=== PATIENT | female | born 1980 | race Caucasian/White ===

== ENCOUNTER 2016-04-01 12:12 | Outpatient (CLI) | payer OTHER ==
[2016-04-01] MEDS ORDERED: GADOBUTROL 7.5 MMOL/7.5 ML VIAL IVP ONE (13:07)
== END 2016-04-01 12:13 | disposition home or self-care (01) ==
DX: R51 Headache (principal)
CPT/HCPCS: 70553; A9585

== ENCOUNTER 2016-05-16 20:47 | Emergency (ER) | payer OTHER ==
[2016-05-16 21:16] LABS: BILIRUBIN,URINE NEGATIVE (NEGATIVE); PH,URINE 7.5 PH (5.0-7.5)
[2016-05-16 21:25] LABS: UA w/ MICROSCOPIC CHARGE YES
[2016-05-16] MEDS ORDERED: KETOROLAC 60 MG/2 ML VIAL IVP STA (21:38)
[2016-05-16] MEDS ORDERED: SODIUM CHLORIDE 0.9% 1,000 ML IV ONE ×2 (21:38→21:41)
[2016-05-16] MEDS ORDERED: ONDANSETRON 4 MG/2 ML VIAL IVP STA (21:38)
[2016-05-16] MEDS ORDERED: HYDROmorphone 1 MG/ML SYRINGE IVP STA (21:38)
[2016-05-16] MEDS ORDERED: KETOROLAC 30 MG/ML VIAL ONE (21:40)
[2016-05-16] MEDS ORDERED: HYDROmorphone 1 MG/ML SYRINGE ONE (21:41)
[2016-05-16] MEDS ORDERED: ONDANSETRON 4 MG/2 ML VIAL ONE (21:41)
[2016-05-16 21:50] LABS: HCG UR QUAL NEGATIVE; UR CULTURE IF IND NOT INDICATED
--- NOTE | 2016-05-16 22:27 | CT Preliminary Report ---
Exam: CT Abdomen/Pelvis W/O IMPRESSION: 1. No urolithiasis seen. 2. Moderate stool in the colon. 3. Appendix appears normal. 4. Several low-attenuation liver lesions measuring up to 2.1 x 1.5 cm. These may be cysts but are not definitively characterized. [facility] SITE ID: [id number]
--- NOTE | 2016-05-16 22:30 | CT Report ---
EXAM: CT ABDOMEN AND PELVIS (CT KUB) EXAM DATE: 05/16/2016 10:03 PM. CLINICAL HISTORY: Right flank pain, with hematuria. COMPARISONS: None. TECHNIQUE: Routine axial helical CT imaging was performed through the abdomen and pelvis without IV c ontrast. Reconstructions: Coronal and sagittal. In accordance with CT protocol optimization, one or more of the following dose reduction techniques w ere utilized for this exam: automated exposure control, adjustment of mA and/or KV based on patient s ize, or use of iterative reconstructive technique. FINDINGS: Lung Bases: Unremarkable. Right Kidney/Ureter: No stones, hydronephrosis, or hydroureter. No perinephric fat stranding. Left Kidney/Ureter: No stones, hydronephrosis, or hydroureter. No perinephric fat stranding. Other Abdominal Organs: Several low-attenuation liver lesions measuring up to 2.1 x 1.[address] [place] is unremarkable. Spleen, pancreas, and adrenals show no focal abnormalities on this noncontrast ex amination. Peritoneal Cavity: Moderate stool in the colon. No diverticulitis. No small bowel obstruction. No catracho e air or free fluid. No lymphadenopathy. Appendix appears normal. Pelvic Organs: No bladder stones or wall thickening. Noncontrast images of the visualized pelvic orga ns are unremarkable. Vasculature: Unremarkable. Other: None. IMPRESSION: 1. No urolithiasis seen. 2. Moderate stool in the colon. 3. Appendix appears normal. 4. Several low-attenuation liver lesions measuring up to 2.1 x 1.5 cm. These may be cysts but are not definitively characterized. [facility] Referring Provider Line: [phone] SITE ID: [id number]
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
[2016-05-16 22:49] VITALS: BP 104/51
--- NOTE | 2016-05-16 23:59 | Ultrasound Report ---
EXAM: PELVIC ULTRASOUND EXAM DATE: 05/16/2016 11:51 PM. CLINICAL HISTORY: Right adnexal pain; rule out ovarian torsion. COMPARISON: None. TECHNIQUE: Realtime transabdominal pelvic scan performed with static image documentation. FINDINGS: Uterus: 9.8 x 5.4 x 5.6 cm, volume 153 cc. Anteverted position. Normal overall size and echotexture. Masses: None. Endometrium: 8 mm. Normal. Cervix: Obscured by bowel gas. Right Ovary: 4.1 x 2.0 x 2.7 cm, volume 11.9 cc. Normal echotexture and blood flow. Left Ovary: 3.0 x 2.0 x 3.3 cm, volume 10.3 cc. Normal echotexture and blood flow. Free Fluid: None. Other: None. IMPRESSION: 1. Uterus and ovaries appear normal. 2. No free fluid seen. [facility] Referring Provider Line: [phone] SITE ID: [id number]
--- NOTE | 2016-05-16 23:59 | Ultrasound Preliminary Report ---
Exam: US Pelvic Non OB w/Doppler Ltd IMPRESSION: 1. Uterus and ovaries appear normal. 2. No free fluid seen. [facility] SITE ID: [id number]
== END 2016-05-17 00:15 | disposition home or self-care (01) ==
LOC: ED 20:47
DX: N23 Unspecified renal colic (principal)
CPT/HCPCS: 74176; 76856; 81001; 81025; 93976; 96361; 96374; 96375; 99283; 99284; J1170; 81003; 87086

== ENCOUNTER 2016-09-23 09:43 | Day surgery (SDC) | payer OTHER ==
[2016-09-23] MEDS ORDERED: LACTATED RINGERS 1,000 ML IV ONE ×3 (09:48→15:38)
[2016-09-23] MEDS ORDERED: ceFAZolin 2 GM/50 ML 50 ML IV ONE (09:49)
[2016-09-23] MEDS ORDERED: CELECOXIB 100 MG CAPSULE PO ONE (09:49)
[2016-09-23] MEDS ORDERED: ACETAMINOPHEN 1,000 MG/100 ML 100 ML IV ONE (09:49)
[2016-09-23 10:21] LABS: HCG UR QUAL NEGATIVE
[2016-09-23] MEDS ORDERED: EPINEPHrine 1 MG/ML AMP IVP ONE (11:45)
[2016-09-23] MEDS ORDERED: ROCURONIUM 50 MG/5 ML VIAL IVP ONE (13:00)
[2016-09-23] MEDS ORDERED: DEXAMETHASONE 4 MG/ML VIAL IVP ONE (13:00)
[2016-09-23] MEDS ORDERED: NEOSTIGMINE 1 MG/1 ML 10 ML MDV IVP ONE (13:00)
[2016-09-23] MEDS ORDERED: ROPIVACAINE 0.5% PF 20 ML AMPULE EP ONE (13:00)
[2016-09-23] MEDS ORDERED: GLYCOPYRROLATE 1 MG/5 ML VIAL IVP ONE (13:00)
[2016-09-23] MEDS ORDERED: fentaNYL 100 MCG/2 ML VIAL IVP ONE (13:00)
[2016-09-23] MEDS ORDERED: ceFAZolin 1 GM VIAL IV ONE (13:00)
[2016-09-23] MEDS ORDERED: MIDAZOLAM 2 MG/2 ML VIAL IVP ONE (13:00)
[2016-09-23] MEDS ORDERED: PROPOFOL 200 MG/20 ML VIAL IVP ONE (13:00)
[2016-09-23] MEDS ORDERED: ONDANSETRON 4 MG/2 ML VIAL IVP ONE (13:00)
[2016-09-23] MEDS ORDERED: BUPIVACAINE 0.25% PF 30 ML VIAL SUBQ ONE (13:55)
[2016-09-23] MEDS ORDERED: ONDANSETRON 4 MG/2 ML VIAL ONE (14:43)
[2016-09-23] MEDS ORDERED: SCOPOLAMINE PATCH TOP ONE (14:57)
[2016-09-23] MEDS ORDERED: PROMETHAZINE 25 MG/1 ML VIAL ONE (14:58)
[2016-09-23 16:32] VITALS: BP 116/62
--- NOTE | 2016-09-24 10:35 | XRAY Report ---
RIGHT SHOULDER X-RAY TAKEN IN PACU: 09/23/2016 CLINICAL HISTORY: Shoulder pain. FINDINGS: Present exam is a limited portable one and demonstrates internal and external rotation vie ws. No significant abnormality is noted on these views. No fracture is seen. I cannot accurately c omment the relationship of the right humeral head to the glenoid on these views. Suggest a Grashey v iew be obtained to better visualize humeral head relationship to the glenoid, especially if there is concern about a subtle dislocation. IMPRESSION: NO DEFINITE ABNORMALITY NOTED. SUGGEST A GRASHEY VIEW OF THE RIGHT SHOULDER FOR FURTHER EVALUATION DISCUSSED ABOVE. COMMENT: A written report was sent to PACU by Dr. Cobian. The x-ray hardware technician took this report to the physicians. This was done on 09/23/2016 at 3:40 p.m. JOB #: [id number] EXT JOB #:[id number]
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
== END 2016-09-23 09:44 | disposition home or self-care (01) ==
LOC: SDS 09:43
PROVIDERS: ATTEND Orthopaedic Surgery
PROC: 0RBJ4ZZ Excision of Right Shoulder Joint, Percutaneous Endoscopic Approach (ICD-10-PCS; principal; 2016-09-23 11:00)
PROC: 0LS30ZZ Reposition Right Upper Arm Tendon, Open Approach (ICD-10-PCS; 2016-09-23 11:00)
DX: M75.41 Impingement syndrome of right shoulder (principal); S43.431A Superior glenoid labrum lesion of right shoulder, initial encounter; M75.21 Bicipital tendinitis, right shoulder; Z53.33 Arthroscopic surgical procedure converted to open procedure
CPT/HCPCS: 23430; 29822; 73030; 81025; A9270; C1713; J0131; J0690; J3490; J7120